=== PATIENT | male | born 1980 | race Caucasian/White ===

== ENCOUNTER 2022-10-17 06:10 | Day surgery (SDC) | payer OTHER ==
[~2022-10-17] VITALS: Ht 170.2 cm; Wt 96.6 kg
[2022-10-18] VITALS (258 sets, daily range): BP systolic 73–180; BP diastolic 28–153
--- NOTE | 2022-10-18 07:20 | NUR ---
PT HAS ARRIVED TO [facility] SUITES WITH DAD, BOTH HAVE BEEN ESCORTED TO ROOM. POC HAS BEEN EXPLAINED AND ALL QUESTIONS HAVE BEEN ADDRESSED. PT HAS BEEN ORIENTED TO ROOM, CALL LIGHT AND FALL RISK PRECAUTIONS. PT IS A&OX3, FOLLWS COMMANDS AND IS ABLE TO MAKE HIS NEEDS KNOWN. CALL LIGHT IS NEAR, AND WILL CONTINUE TO MONITOR.
[2022-10-18 07:53] LABS: BASO% 0.1 % (0-3); EOS% 2.1 % (0-8); HEMOGLOBIN 16.5 g/dl (14.0-18.0); IMMATURE GRANULOCYTES 0.1 % (0.0-5.0); LYMPH% 29.8 % (15-41); MEAN CELL VOLUME 90.2 fL CALC (80.0-100.0); MEAN CORPUSCULAR HGB 30.4 pG CALC (26.0-32.0); MEAN CORPUSCULAR HGB CONC 33.7 g/dL CAL (32.0-36.0); NEUT# 4.31 thou/uL (1.82-7.42); NEUT% 59.9 % (42-76); RED BLOOD COUNT 5.43 mill/uL (4.70-6.10); RED CELL DISTRI WIDTH 12.3 % (11.5-15.5)
[2022-10-18 08:25] LABS: ALBUMIN 4.7 g/dL (3.2-5.0); ALKALINE PHOSPHATASE 64 u/l (38-126); ANION GAP 14 (6-22 (CALC)); BILIRUBIN, TOTAL 0.4 mg/dL (0.2-1.3); BUN 14 mg/dL (9-20); BUN/CREATININE RATIO 16 (12-20 (CALC)); CARBON DIOXIDE 23 mmol/l (22-30); CHLORIDE 106 mmol/l (95-108); CREATININE 0.9 mg/dL (0.7-1.3); GFR FOR AFR.AMER. > 60 ML/MIN (>=60 (CALC)); GFR OTHER RACES > 60 ML/MIN (>=60 (CALC)); POTASSIUM 4.2 mmol/l (3.5-5.1); SGOT/AST 37 u/l (17-59); SODIUM 139 mmol/l (137-146); TOTAL PROTEIN 7.5 g/dL (6.3-8.2)
--- NOTE | 2022-10-18 09:30 | NUR ---
PT REASSESSED, PT IS RESTING CALL LIGHT NEAR.
--- NOTE | 2022-10-18 11:40 | NUR ---
Induction Note Patient to [facility] procedure room. Time out performed at 1141. Patient placed on monitors, Elizabeth hugger, bilateral wrist restraints applied for ET tube protection. Versed 5mg given IV push at 1142 Tourniquet applied to RIGHT arm Lidocaine 100mg given at 1143 IV push followed by Rocoronium 10mg at 1144 IV push and held for 90 seconds. Propofol bolus of 200mg given at 1146 IV push. Succinylcholine 80mg given IV push at 1147. Smooth intubation with 7.5 ETT. Positive CO2. Positive Auscultation for air exchange. Patient placed on ventilator for spontaneous ventilation. Placed on Propofol IV drip at 1148. OG inserted. Positive air on auscultation. Positive gastric content. Stomach washed at this time.
--- NOTE | 2022-10-18 11:55 | NUR ---
OG close note Stomach washed at this time. Naltrexone 50 mg via OG tube. OG will be clamped for 45 minutes.
--- NOTE | 2022-10-18 12:40 | NUR ---
OG open note OG open at this time. Gastric content draining into drainage bag. OG to drain for 45 minutes. Propofol will be titrated down based on patient.
--- NOTE | 2022-10-18 13:30 | NUR ---
OG close note Stomach washed at this time. Naltrexone 50 mg with Clonidine 0.2 mg via OG tube. OG will be clamped for 45 minutes.
[2022-10-18] MEDS ORDERED: NALTREXONE50 MG PO (14:43)
[2022-10-18] MEDS ORDERED: KLONOPIN2 MG PO (14:43)
[2022-10-18] MEDS ORDERED: CLONIDINE0.1 MG PO (14:43)
--- NOTE | 2022-10-18 15:05 | NUR ---
OG close note Stomach washed at this time. Naltrexone 50 mg with Clonidine 0.2 mg via OG tube. OG will be clamped for 45 minutes.
--- NOTE | 2022-10-18 16:40 | NUR ---
OG close note Stomach washed at this time. Naltrexone 25 mg with Clonidine 0.2 mg via OG tube. OG will be clamped for 45 minutes.
--- NOTE | 2022-10-18 18:55 | NUR ---
Extubation note Closing medications given Benadryl 50mg IV push, Decadron 10mg IV push,Magnesium 4 grams IV, Zofran 8mg IV push, Octreotide 100mcg SC. Stomach washed out prior to extubation. Suctioned gastric content. OG removed. Patient extubated. Propofol Discontinued. Wrist restraints removed. Elizabeth hugger Removed. See [facility] Moderate sedate recovery record for further notes and assessment.
--- NOTE | 2022-10-18 19:50 | NUR ---
PT HAS BEEN TRANSFERRED TO [facility], ROOM 284. PT IS AROUSABLE TO TACTILE STIMULI. REPORT GIVEN TO PM RN. PT HAS 3NC, WITH CONTINUOUS PULSE OX READING. PT HAVE LR IVF INFUSING @ 100ML/HR. PT HAS RIGHT FEMORAL LINE CDI AND HEPLOCK. PT HAS BED ALARM ACTIVE.
--- NOTE | 2022-10-18 20:02 | NUR ---
PT ARRIVED TO [facility] ROOM 284. BEDSIDE REPORT RECIEVED FROM [facility] NURSE. PT DISORIENTED AND SLIGHTLY RESTLESS. RESPIRATIONS SHALLOW ON 2.5L NC, O2 SAT STABLE.CONTINOUS O2 IN PLACE. LUNG SOUNDS CLEAR. HEART RHYTHM NORMAL. BOWEL SOUNDS HYPOACTIVE. #20G RAC INFUSING WITH IVF PER ORDER. RIGHT FEMORAL TRIPLE LUMEN NOTED, BLOOD RETURN NOTED. PULSES STRONG. SKIN INTACT. NO SIGNS OF ANY DISTRESS AT THIS TIME. ALL SAFTEY PRECAUTIONS ARE IN PLACE WITH CALL LIGHT IN REACH. BED ALARM ACTIVE.
--- NOTE | 2022-10-18 21:00 | NUR ---
VITALS WNL. RESPIRATIONS REMAINS SHALLOW BUT O2 SAT STABLE. PT CONTINUES TO BE RESTLESS YELLING OUT. PRN ATIVAN ADMINISTERED. CONT O2 IN PLACE. PT REPOSITIONED FOR COMFORT. ALL SAFTEY PRECAUTIONS ARE IN PLACE WITH CALL LIGHT IN REACH. BED ALARM ACTIVE
[2022-10-19 00:15] VITALS: BP 147/95
--- NOTE | 2022-10-19 00:18 | NUR ---
PT SLEEPING IN SEMI FOWLERS POSITION. REPSIRATIONS EVEN AND UNLABORED ON 2.5 L NC. CONT O2 REMAINS IN PLACE, SATS SATABLE. #20G RAC AND RIGHT FEMORAL TRIPLE LUMEN NOTED. 2300 MEDS HELD DUE TO TELE CALLING TO INFORM NURSE OF HR DROPPING INTO 30-40'S. NO SIGNS OF ANY DISTRESS. ALL SAFTEY PRECAUTIONS ARE IN PLACE WITH CALL LIGHT IN REACH. BED ALARM ACTIVE
[2022-10-19 02:15] VITALS: BP 136/76
--- NOTE | 2022-10-19 04:05 | NUR ---
PT C/O RESTLESSNESS AND NOT ABLE TO SLEEP.PT TOLERATED 0400 MEDS WELL. CLONODINE HELD DUE TO EPISODE OF HR DROPING INTO 40'S. RESPIRATIONS EVEN AND UNLABORED ON ROOM AIR. #20G RAC AND RIGHT FEMORAL TRIPLE LUMEN NOTED. MORNING LABS COLLECTED AND LINE FLUSHED, BLOOD RETURN NOTED. PT DENIES OF ANY NEEDS ALL SAFTEY PRECAUTIONS ARE IN PLACE WITH CALL LIGHT IN REACH. BED ALARM ACTIVE.
[2022-10-19 04:34] LABS: BASO% 0.1 % (0-3); HEMATOCRIT 46.8 % (39.0-50.0); HEMOGLOBIN 15.8 g/dl (14.0-18.0); IMMATURE GRANULOCYTES 0.1 % (0.0-5.0); LYMPH% 6.3 % (15-41); MEAN CELL VOLUME 90.3 fL CALC (80.0-100.0); MEAN CORPUSCULAR HGB 30.5 pG CALC (26.0-32.0); MEAN CORPUSCULAR HGB CONC 33.8 g/dL CAL (32.0-36.0); MONO% 3.5 % (2-13); NEUT# 13.52 thou/uL (1.82-7.42); RED BLOOD COUNT 5.18 mill/uL (4.70-6.10); RED CELL DISTRI WIDTH 12.5 % (11.5-15.5)
[2022-10-19 04:41] LABS: ALBUMIN 4.5 g/dL (3.2-5.0); ALKALINE PHOSPHATASE 66 u/l (38-126); ANION GAP 12 (6-22 (CALC)); BILIRUBIN, TOTAL 0.4 mg/dL (0.2-1.3); BUN 13 mg/dL (9-20); BUN/CREATININE RATIO 15 (12-20 (CALC)); CHLORIDE 106 mmol/l (95-108); CREATININE 0.9 mg/dL (0.7-1.3); GFR FOR AFR.AMER. > 60 ML/MIN (>=60 (CALC)); GFR OTHER RACES > 60 ML/MIN (>=60 (CALC)); MAGNESIUM 2.2 mg/dL (1.6-2.3); POTASSIUM 3.6 mmol/l (3.5-5.1); SGOT/AST 38 u/l (17-59); SODIUM 142 mmol/l (137-146); TOTAL PROTEIN 7.2 g/dL (6.3-8.2)
[2022-10-19 04:50] LABS: CARBON DIOXIDE 28 mmol/l (22-30)
[2022-10-19 05:56] VITALS: BP 135/71
--- NOTE | 2022-10-19 07:10 | NUR ---
R'CD REPORT FROM PM NURSE. PT IS SLEEPING, EASILY AROSUABLE. PT ATTACHED TO CONTINUOUS O2 MONITORING. PT IS A&OX2, PT ENCOURAGED TO CONTINUE TO REST, BED ALARM IS ACTIVE. WILL CONTINUE TO MONITOR.
[2022-10-19 08:25] VITALS: BP 135/71
--- NOTE | 2022-10-19 11:10 | NUR ---
PT HAS HAD SMALL BM IN BRIEF, PT HAS BEEN CLEANED AND LINENS HAVE BEEN CHANGED. THIS NURSE ALSO REMOVED RIGHT FEMORAL LINE AT THIS TIME. PT IS MORE ALERT. WILL CONTINUE TO MONITOR
--- NOTE | 2022-10-19 13:43 | NUR ---
PT HAS BEEN ASSISTED TO SHOWER. PT GAIT IS STEADY AND PT IS MOST ALERT. WILL CONTINUE TO MONITOR.
--- NOTE | 2022-10-19 14:21 | NUR ---
PT SITTING UP OOB, PT VOMITTING, PT HAS BEEN MEDICATED. WILL CONTINUE TO MONITOR
--- NOTE | 2022-10-19 14:42 | NUR ---
PT HAS AMBULATED DOWN THE HERNANDEZ, PT DID WELL. PT BACK INTO BED WILL CONTINUE TO MONITOR.
--- NOTE | 2022-10-19 16:30 | NUR ---
PT IS BEING D/C AND PT HAS ALL BELONGINGS AND WILL BE GIVEN D/C INSTRUCTIONS BY [facility] DIRECTOR. PT GAIT IS STEADY, ALL IVS HAVE BEEN REMOVED
== END 2022-10-19 16:35 | disposition home or self-care (01) | DRG 897 ==
LOC: ANR 06:10 → MS2 10-18 04:06 → ANR 10-19 16:35
PROVIDERS: ATTEND Anesthesiology Critical Care Medicine
DX: F11.20 Opioid dependence, uncomplicated (principal)
CPT/HCPCS: J2060; J2354; J3475; S0164